=== PATIENT | male | born 1955 | race Caucasian/White ===

== ENCOUNTER 2025-03-08 08:24 | Observation (INO) ==
--- NOTE | 2024-12-02 10:50 | PAT Medication Instructions ---
Medication Instructions Date of Service December 02, 2024 Home Medications ascorbic acid (vitamin C) 500 mg capsule 500 mg PO DAILY baclofen 10 mg tablet 10 mg PO DAILY PRN cholecalciferol (vitamin D3) 125 mcg (5,000 unit) capsule 125 mcg PO DAILY ferrous gluconate 324 mg (37.5 mg iron) tablet 324 mg PO DAILY irbesartan 150 mg tablet 150 mg PO QAM metoprolol succinate 50 mg tablet,extended release 24 hr 50 mg PO BID yzxmcgikupil-yiltkvnn-zadgsn tablet 1 tab PO DAILY tramadol 50 mg tablet 50 mg PO Q8H PRN Cinnamon 1 tab PO QAM Vitamin B-12 1 tab PO QAM duloxetine 30 mg capsule,delayed release 60 mg PO HS fexofenadine 180 mg tablet 180 mg PO DAILY PRN folic acid 1 mg tablet 1 mg PO QAM hydrochlorothiazide 12.5 mg tablet 12.5 mg PO QAM magnesium 250 mg tablet 250 mg PO DAILY omeprazole 20 mg tablet,delayed release 20 mg PO QAM oxybutynin chloride 5 mg tablet 5 mg PO HS phentermine 37.5 mg tablet 37.5 mg PO DAILY potassium 99 mg tablet 99 mg PO QAM potassium chloride 10 mEq tablet,extended release 10 meq PO DAILY topiramate 50 mg tablet (Topamax) 50 mg PO HS valsartan 320 mg tablet 320 mg PO QAM vitamin A 1 tab PO QAM STOP 5 days before surgery phentermine 37.5 mg tablet 37.5 mg PO DAILY Continue as directed baclofen 10 mg tablet 10 mg PO DAILY PRN(if needed) STOP taking 2 weeks before surgery (or as soon as possible if surgery is within 2 weeks) Cinnamon 1 tab PO QAM vitamin A 1 tab PO QAM DO NOT take the morning of surgery ascorbic acid (vitamin C) 500 mg capsule 500 mg PO DAILY cholecalciferol (vitamin D3) 125 mcg (5,000 unit) capsule 125 mcg PO DAILY ferrous gluconate 324 mg (37.5 mg iron) tablet 324 mg PO DAILY irbesartan 150 mg tablet 150 mg PO QAM tbpwbbmhqpiw-dwawzxew-lzhwlt tablet 1 tab PO DAILY Vitamin B-12 1 tab PO QAM fexofenadine 180 mg tablet 180 mg PO DAILY PRN folic acid 1 mg tablet 1 mg PO QAM hydrochlorothiazide 12.5 mg tablet 12.5 mg PO QAM magnesium 250 mg tablet 250 mg PO DAILY potassium 99 mg tablet 99 mg PO QAM potassium chloride 10 mEq tablet,extended release 10 meq PO DAILY valsartan 320 mg tablet 320 mg PO QAM Take morning of surgery With a small sip of water, OTHERWISE NOTHING TO EAT OR DRINK AFTER MIDNIGHT: metoprolol succinate 50 mg tablet,extended release 24 hr 50 mg PO BID tramadol 50 mg tablet 50 mg PO Q8H PRN(if needed) omeprazole 20 mg tablet,delayed release 20 mg PO QAM Take evening before surgery metoprolol succinate 50 mg tablet,extended release 24 hr 50 mg PO BID tramadol 50 mg tablet 50 mg PO Q8H PRN(if needed) duloxetine 30 mg capsule,delayed release 60 mg PO HS oxybutynin chloride 5 mg tablet 5 mg PO HS topiramate 50 mg tablet (Topamax) 50 mg PO HS Other Notes If you have any questions please call us at [phone] or [phone] or [phone] or [phone]
--- NOTE | 2024-12-09 12:36 | Anesthesiology Consultation ---
Date of Service December 09, 2024 Assessment & Plan (1) Encounter for pre-operative examination: - I called PCP Dr. Cerrato [facility] office 12/09/24 regarding creatinine at 2.0 and it was confirmed that provider would be made aware JAMESON. Labs will also be faxed to PCP. Patient will need PCP clearance prior to surgery, optimization form to be faxed. Surgeon's office made aware. Chart Review Chart Review: Pending: Refer to Additional Notes / Consult section and Patient seen in Pre Admission Testing Teaching & Discussion Pre-Anesthesia Teaching/Discussion Notes: Instructed NPO after midnight before surgery, except medications with 15 cc of water. Medication instructions provided according to the PAT guidelines. History Surgery Operation Date: 08/21/24 12:50 Proposed Procedures p Right Total Knee Arthroplasty - Tamir Anguiano DO Operation Date: 01/01/25 08:00 Proposed Procedures p Right Total Knee Arthroplasty - Tamir Anguiano DO Height/Weight Height: 6 ft 2 in Weight: 108.6 kg Allergies Allergy/AdvReac Type Severity Reaction Status Date / Time No Known Allergies Allergy Verified 11/26/24 14:48 Medications Home Medications Medication Instructions Recorded Confirmed Last Taken ascorbic acid (vitamin C) 500 mg 500 mg PO DAILY 10/17/20 11/26/24 Unknown capsule baclofen 10 mg tablet 10 mg PO DAILY PRN Muscle Spasm 10/17/20 11/26/24 Unknown cholecalciferol (vitamin D3) 125 125 mcg PO DAILY 10/17/20 11/26/24 Unknown mcg (5,000 unit) capsule ferrous gluconate 324 mg (37.5 mg 324 mg PO DAILY 10/17/20 11/26/24 Unknown iron) tablet irbesartan 150 mg tablet 150 mg PO QAM 10/17/20 11/26/24 Unknown metoprolol succinate 50 mg 50 mg PO BID 10/17/20 11/26/24 Unknown tablet,extended release 24 hr jiyenbpjeoyx-mqiknpgh-afdnpp tablet 1 tab PO DAILY 10/17/20 11/26/24 Unknown tramadol 50 mg tablet 50 mg PO Q8H PRN Pain 11/13/24 11/26/24 Unknown Cinnamon 1 tab PO QAM 11/26/24 11/26/24 Unknown Vitamin B-12 1 tab PO QAM 11/26/24 11/26/24 Unknown duloxetine 30 mg capsule,delayed 60 mg PO HS 11/26/24 11/26/24 Unknown release fexofenadine 180 mg tablet 180 mg PO DAILY PRN Allergic 11/26/24 11/26/24 Unknown Symptoms folic acid 1 mg tablet 1 mg PO [facility] 11/26/24 11/26/24 Unknown hydrochlorothiazide 12.5 mg tablet 12.5 mg PO [facility] 11/26/24 11/26/24 Unknown magnesium 250 mg tablet 250 mg PO DAILY 11/26/24 11/26/24 Unknown omeprazole 20 mg tablet,delayed 20 mg PO [facility] 11/26/24 11/26/24 Unknown release oxybutynin chloride 5 mg tablet 5 mg PO HS 11/26/24 11/26/24 Unknown phentermine 37.5 mg tablet 37.5 mg PO DAILY for energy 11/26/24 11/26/24 Unknown potassium 99 mg tablet 99 mg PO [facility] 11/26/24 11/26/24 Unknown potassium chloride 10 mEq 10 meq PO DAILY 11/26/24 11/26/24 Unknown tablet,extended release topiramate 50 mg tablet (Topamax) 50 mg PO HS 11/26/24 11/26/24 Unknown valsartan 320 mg tablet 320 mg PO [facility] 11/26/24 11/26/24 Unknown vitamin A 1 tab PO [facility] 11/26/24 11/26/24 Unknown Past Medical History Medical History Acid reflux controlled, stable per pt Marino's cyst right Decreased energy states started on phentermine to help w/ this Diabetes hx- no longer on meds states controlled w/ cinnamon Excessive sweating reports on oxybutynin for this History of blood clots (~05/2024) 05/2024 >> "suspected" clot behind RIGHT knee was on blood thinner x 3 mos History of COVID-19 (05/2020) hospitalized x 1 month, on ventilator; denies long term care pharmacist issues HTN (hypertension) controlled, stable per pt Osteoarthritis Seasonal allergies Sleep apnea no device needed Patient denies h/o stroke, seizures, heart attack, heart failure, or blood transfusions. Exercise / Class Metabolic Activity II 4-5 Yardwork/Stairs/Walk up hill (ambulates with cane, denies chest discomfort or shortness of breath with one flight of stairs) Past Surgical History Surgical History Hx of colonoscopy Hx of fusion of cervical spine ~1999 unsure of level, full ROM Hx of prostatectomy "borderline cancer" Hx of removal of cyst left wrist Hx of shoulder surgery X3 LEFT X2 RIGHT Past Anesthesia History No Hx of Anesthesia Complications and Other (daughter post-op aggressiveness) History of PONV No Hx of PONV and No Hx of Motion Sickness Social History Smoking Status: Former smoker Do You Dip or Chew Tobacco: No Smoking End Date: quit ~5 yrs ago Hx Alcohol Use: No Hx Substance Use: No substance use type: does not use Review of Systems Patient denies chest pain, shortness of breath, dyspnea on exertion, fever, chills, cough, wheezing, or palpitations. Physical Exam Vital Signs Vitals BP 107/68 P 81 TEMP 37.0 SP02 96% on RA RESP 17 Physical Patient resting comfortably in chair in no acute distress, alert and oriented, responding appropriately throughout visit Full cervical extension range of motion without pain TMD 3.5 finger breadths Mallampati Score 2 Dentition: chipped right upper side tooth and cap/crowns; denies loose teeth, implants or bridges Lungs: normal respiratory effort. Good air movement, clear throughout to auscultation, no adventitious breath sounds Cardiac: regular rate and rhythm, no murmurs noted Carotid arteries: negative bruit bilat Lab Results Anesthesia Preop Results Results Anesthesia Widget: WBC 9.96 K/ul (4.8-10.8) 12/09/24 Hgb 13.0 g/dl (14.0-18.0) L 12/09/24 Hct 38.3 % (42.0-52.0) L 12/09/24 Plt 267 K/uL (130-400) 12/09/24 Na 140 mmol/L (136-145) 12/09/24 K 4.2 mmol/L (3.5-5.1) 12/09/24 Cl 108 mmol/L (98-107) H 12/09/24 CO2 26 mmol/L (21-32) 12/09/24 BUN 40 mg/dl (6-23) H 12/09/24 Creat 2.04 mg/dl (0.6-1.4) H 12/09/24 Glucose Level 89 mg/dl (70-99(Fasting)) 12/09/24 PT 10.5 Seconds (9.0-12.0) 12/09/24 PTT 27 Seconds (21-31) 12/09/24 INR 1.0 (0.9-1.1) 12/09/24 HA1c 5.7 % (4.5-5.6) H 12/09/24 Blood Type A Positive 12/09/24 Antibody Screen NEGATIVE 12/09/24 Testing Electrocardiogram Date: 12/09/24 NSR, rate 83 bpm RBBB Chest X-Ray Date: 12/09/24 No acute findings.
--- NOTE | 2025-03-03 12:55 | History & Physical Report ---
Date of Service March 03, 2025 Assessment & Plan (1) Osteoarthritis of right knee: We will proceed with a right total knee arthroplasty. Postoperatively, he will be started on aspirin for DVT prophylaxis and kept overnight in the hospital for postop medical management. He plans to have the hospital set up home health at discharge. History of Present Illness Chief Complaint: Osteoarthritis right knee. Primary Care Provider: Randolph Fuchs is a pleasant 69-year-old male who has been dealing with chronic increasing right knee pain. X-rays and clinical examination have been diagnostic for advanced arthritis of the right knee. After failing extensive conservative treatment, he has elected to proceed with a right total knee arthroplasty. Allergies Allergy/AdvReac Type Severity Reaction Status Date / Time No Known Allergies Allergy Verified 02/25/25 13:15 Home Medications Medication Instructions Recorded Confirmed Type baclofen 10 mg tablet 10 mg PO DAILY PRN Muscle Spasm 10/17/20 02/25/25 History cholecalciferol (vitamin D3) 125 125 mcg PO QAM 10/17/20 02/25/25 History mcg (5,000 unit) capsule ferrous gluconate 324 mg (37.5 mg 324 mg PO QAM 10/17/20 02/25/25 History iron) tablet fgjwmydczfin-eosklkhm-hsmpon tablet 1 tab PO DAILY 10/17/20 02/25/25 History Cinnamon 2 tab PO QAM 11/26/24 02/25/25 History duloxetine 30 mg capsule,delayed 60 mg PO HS 11/26/24 02/25/25 History release fexofenadine 180 mg tablet 180 mg PO DAILY PRN Allergic 11/26/24 02/25/25 History Symptoms folic acid 1 mg tablet 1 mg PO QAM 11/26/24 02/25/25 History hydrochlorothiazide 12.5 mg tablet 25 mg PO QAM 11/26/24 02/25/25 History magnesium 250 mg tablet 250 mg PO DAILY 11/26/24 02/25/25 History omeprazole 20 mg tablet,delayed 20 mg PO QAM 11/26/24 02/25/25 History release phentermine 37.5 mg tablet 37.5 mg PO DAILY for energy 11/26/24 02/25/25 History potassium 99 mg tablet 99 mg PO QAM 11/26/24 02/25/25 History potassium chloride 10 mEq 10 meq PO DAILY 11/26/24 02/25/25 History tablet,extended release topiramate 50 mg tablet (Topamax) 50 mg PO HS 11/26/24 02/25/25 History vitamin A 1 tab PO QAM 11/26/24 02/25/25 History acetaminophen 650 mg 1,300 mg PO DAILY PRN Pain 12/30/24 02/25/25 History tablet,extended release (Tylenol 8 Hour) ascorbate calcium (vitamin C) 500 500 mg PO BID 12/30/24 02/25/25 History mg tablet betamethasone, augmented 0.05 % 1 applic topical BID PRN Skin 12/30/24 02/25/25 History topical ointment (Diprolene Irritation (augmented)) clotrimazole-betamethasone 1 1 applic topical BID PRN Skin 12/30/24 02/25/25 History %-0.05 % topical cream Irritation metoprolol tartrate 50 mg tablet 50 mg PO HS 12/30/24 02/25/25 History mupirocin 2 % topical ointment 1 applic topical QPM PRN Skin 12/30/24 02/25/25 History Irritation nystatin 100,000 unit/gram topical 1 applic topical TID PRN Skin 12/30/24 02/25/25 History cream Irritation oxybutynin chloride 5 mg tablet 2.5 mg PO DAILY PRN bladder issues 12/30/24 02/25/25 History tizanidine 4 mg tablet 4 mg PO Q8H PRN muscle spasms 12/30/24 02/25/25 History tramadol 50 mg tablet 50 mg PO Q6H PRN Pain 12/30/24 02/25/25 History valsartan 320 mg tablet 320 mg PO QAM 12/30/24 02/25/25 History alprazolam 0.5 mg tablet (Xanax) 0.25 mg PO HS PRN Sleep 02/25/25 02/25/25 History Past Med/Surg History Problem List Acute kidney injury Myalgia Vitamin D deficiency Chronic low back pain Injury of right rotator cuff Left thyroid nodule Aphthous ulcer Multinodular goiter Euthyroid goiter Dysrhythmia, cardiac Congestive heart failure (CHF) Lumbar radiculopathy Myofascial pain syndrome of lumbar spine Sacroiliitis Piriformis syndrome Myositis Sciatica Cervicalgia Bilateral wrist pain Muscle spasm of back Obstructive sleep apnea Hypersomnia Spinal stenosis of lumbar region with neurogenic claudication Tinea unguium Toe pain, right Diabetes insipidus Other specified postprocedural states Spondylolisthesis, lumbar region Insomnia Anemia Atypical angina Blood in stool Family history of colon cancer in mother ED (erectile dysfunction) Prostatitis, chronic Lumbar facet joint pain Allergic rhinitis Peripheral neuropathy Shoulder pain, left Other sprain of left shoulder joint, initial encounter Rotator cuff syndrome Transition of care Coronavirus infection Viral illness Neuropathic pain BPH without urinary obstruction or lower urinary tract symptoms Prostate cancer Transitional lumbosacral vertebra Right leg weakness Obesity Spondylosis Arthropathy of lumbar facet joint Knee joint pain Hyperhidrosis Diastasis recti Prediabetes Dry mouth Chest pain Thyromegaly Chronic cough [id number] condition Tinea versicolor Skin lesions Easy bruisability Renal insufficiency Chronic diastolic (congestive) heart failure Nontoxic multinodular goiter Generalized anxiety disorder Unspecified asthma Petechiae Nonspecific syndrome suggestive of viral illness Dermatitis Cellulitis BMI 35.0-35.9,adult Daytime somnolence Kyphosis Acute deep vein thrombosis (DVT) Right calf pain Localized swelling, mass and lump, right lower limb Muscle weakness (generalized) Dystrophia unguium Cold feet Chronic kidney disease, stage 4 (severe) HTN (hypertension) controlled, stable per pt Medial meniscus tear Osteoarthritis of right knee Tendinitis of right rotator cuff Rotator cuff tear, left Medical History History of asthma pt denies Sacroiliitis hx History of renal insufficiency Left thyroid nodule hx, monitoring Generalized anxiety disorder pt denies, "takes medication for pain not anxiety" Hx of goiter pt denies, "diagnosed with a nodule only" Dysrhythmia, cardiac pt denies "had high blood pressure, but it's currently stable" Hx of congestive heart failure pt denies. History of chronic cough History of cellulitis none recently, resolved Blood in stool hx, "years ago due to a hemorrhoid, no recent issues" Hx of chronic kidney disease f/u [facility] (last saw 01/26/25) Nausea and vomiting after administration of anesthetic agent only once in 1968 Hx of peripheral neuropathy Hx of insomnia History of hypertension Atypical angina hx, "from a cough, nothing heart related" History of anemia Degenerative joint disease of cervical spine Impaired fasting glucose hx, "no issues recently per pt" Lower back pain Acid reflux controlled, stable per pt Osteoarthritis Decreased energy states started on phentermine to help w/ this Excessive sweating reports on oxybutynin for this History of COVID-19 (05/2020) hospitalized x 1 month, on ventilator; denies halfway issues Seasonal allergies Diabetes hx- no longer on meds states controlled w/ cinnamon Marino's cyst right History of blood clots (~05/2024) 05/2024 >> "suspected" clot behind RIGHT knee was on blood thinner x 3 mos>ended up being a Marino's cyst determined by second US Sleep apnea no device needed, also lost 60lb which "helped" Surgical History History of esophagogastroduodenoscopy (EGD) Hx of nasal polypectomy H/O prostate biopsy Hx of colonoscopy Hx of removal of cyst left wrist Hx of prostatectomy "borderline cancer" Hx of shoulder surgery X3 LEFT X2 RIGHT Hx of fusion of cervical spine ~1999 unsure of level, full ROM Family History Mother Colon cancer Father Breast cancer Unknown Heart disease Social History Smoking Status: Former smoker Tobacco Type: Cigarettes Second Hand Exposure: No; Do You Dip or Chew Tobacco: No; Hx Alcohol Use: Yes Hx Substance Use: No Preferred Language: Congolese Communication Ability: Effective Visual Impairment: No Limitations Hearing Ability: Normal Batch Roller Operator Required: No Beliefs That Will Affect Care: None marital status: Current Living Situation: Alone current occupational status: employed and retired 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 Physical Exam On physical exam of the right knee, he has a slight valgus deformity. Tenderness to palpation of the distal lateral femoral condyle and over the lateral joint line.. Constitutional WD/WN, vitals as above Eyes PERRL, conjunctivae normal, anicteric sclerae ENMT external ear and nose normal, oropharynx normal Neck trachea midline, no thyromegaly Respiratory normal respiratory effort Cardiovascular RRR, no murmur, no edema Gastrointestinal (Abdomen) normal bowel sounds, soft, nontender, no hepatosplenomegaly Psychiatric A+Ox3, euthymic affect Results & Data Results & Data Laboratory Results . Diagnostic Findings X-rays of the right knee show advanced osteoarthritis with joint space narrowing, osteophyte formation, and [id number] articulation PG Care Time/CCT Total # of Minutes Spent Total Time Spent with Patient: Total time spent is greater than 50% in coordination of care (as documented) at patient's floor/unit and/or counseling patient: Coding Level of Care Code None Diagnoses Osteoarthritis of right knee M17.11
[~2025-03-08 08:24] MED LIST: BUPIVACAINE 0.5 % 5 MG/1 ML PF 10ML VIAL ONE; LIDOCAINE 2% 2 ML VIAL/AMP(20MG/ML) INFIL ONE; MIDAZOLAM HCL 1 MG/ML 2ML VIAL ONE; ROPIVACAINE 0.5% 5 MG/ML 30 ML VIAL ONE
[2025-03-08] MEDS ORDERED: PROPOFOL IV EMULSION 10 MG/ML 20 ML VIAL IV ONE (08:25)
[2025-03-08] MEDS ORDERED: ONDANSETRON INJ 2 MG/ML 2 ML VIAL ONE (08:25)
[2025-03-08] MEDS: LR 500ML BOLUS, THEN 15ML/HR IV SCH (09:05)
[2025-03-08 09:07] LABS: INR 0.9 (0.9-1.1); Partial Thromboplastin Time 28 Seconds (21-31); Prothrombin Time 10.2 Seconds (9.0-12.0)
[2025-03-08] MEDS: ACETAMINOPHEN 500 MG TAB PO SCH ×2 (09:11→16:39)
[2025-03-08] MEDS: FAMOTIDINE 20 MG TAB PO SCH (09:12)
[2025-03-08] MEDS: GABAPENTIN 300 MG CAP PO SCH (09:12)
[2025-03-08] MEDS: dexAMETHasone**PF** 10 MG/ML VIAL IV SCH (09:13)
[2025-03-08] MEDS ORDERED: LIDOCAINE 2% 2 ML VIAL/AMP(20MG/ML) INFIL ONE (09:15)
[2025-03-08] MEDS: LR 60ML/HR IV SCH (09:41)
[2025-03-08] MEDS: TRANEXAMIC ACID 1,000 MG **IV Pre-op IV SCH (09:42)
--- NOTE | 2025-03-08 09:45 | History & Physical Bridge Note ---
Date of Service March 08, 2025 History & Physical Bridge Note I have examined the patient, reviewed the History & Physical and in the interval since the performance of the History & Physical I have noted the following changes of clinical significance: no changes noted
[2025-03-08] MEDS ORDERED: ATROPINE SULFATE 0.1 MG/ML 10ML SYR IV PRN (10:11)
[2025-03-08] MEDS ORDERED: ONDANSETRON INJ 2 MG/ML 2 ML VIAL IV PRN ×2 (10:11→13:18)
[2025-03-08] MEDS ORDERED: PHENYLEPHRINE HCL 10 MG/ML VIAL ONE (10:36)
[2025-03-08] MEDS: ORTHO JOINT ANESTHETIC ONE (10:47)
[2025-03-08] MEDS: ROPIV 0.5% 246mg, Ketorolac 30mg, EPINEPHrine 0.5mg in NSS INFIL SCH (10:47)
--- NOTE | 2025-03-08 12:47 | XRay Report ---
XR knee RT 1 or 2V routine CLINICAL HISTORY: Surgical Post Op COMPARISON: None FINDINGS: Right knee prosthesis shows no hardware complication. There is expected soft tissue gas. IMPRESSION: Unremarkable postoperative exam. ACT 112: Negative or not required by law. Electronically signed by: iMchi Campuzano M.D. 03/08/2025 12:46 PM
[2025-03-08] MEDS ORDERED: BACLOFEN 10 MG TAB PO PRN (13:18)
[2025-03-08] MEDS ORDERED: MAGNESIUM HYDROXIDE SUSP 30 ML UDC PO PRN (13:18)
[2025-03-08] MEDS ORDERED: METOCLOPRAMIDE HCL INJ 5 MG/ML 2 ML VIAL IV PRN (13:18)
[2025-03-08] MEDS ORDERED: HYDROmorphone INJ 0.5 MG/0.5 ML SYR IV PRN (13:18)
[2025-03-08] MEDS ORDERED: diphenhydrAMINE Capsule 25 MG CAP PO PRN (13:18)
[2025-03-08] MEDS ORDERED: FEXOFENADINE HCL 180 MG TAB PO PRN (13:18)
[2025-03-08] MEDS ORDERED: NALOXONE HCL 0.4 MG/1 ML VIAL/CARP IV PRN (13:18)
--- NOTE | 2025-03-08 13:25 | Anesthesiology Progress Note ---
Date of Service March 08, 2025 Anesthesia Post Procedure Vital Signs Vital Signs: Temp Pulse Pulse Resp BP Pulse Ox O2 Del Method 03/08/25 13:15 77 15 125/69 96 Room Air 03/08/25 13:00 78 16 128/78 95 Room Air 03/08/25 12:50 70 15 122/69 92 Room Air 03/08/25 12:40 98.1 F 73 17 112/69 96 Room Air 03/08/25 12:30 77 22 125/68 95 Room Air 03/08/25 12:20 80 19 117/69 95 Room Air 03/08/25 12:10 83 26 H 104/86 92 Room Air 03/08/25 12:01 98.1 F 81 19 122/75 95 Room Air 03/08/25 08:56 97.9 F 71 18 153/89 H 97 Room Air Pain Intensity Right Knee: Pain Intensity: 5 Transfer of Care Handoff Completed per policy Notes Mental Status: alert / awake / arousable and participated in evaluation Patient Amnestic to Procedure: Yes Nausea / Vomiting: adequately controlled Pain: adequately controlled Airway Patency, RR, SpO2: stable & adequate BP & HR: stable & adequate Hydration State: stable & adequate Neuraxial Anesthesia: was administered and sensory block is resolving Anesthetic Complications: no major complications apparent and Pt Satisfied with anesthetic care
--- NOTE | 2025-03-08 14:23 | Operative Report ---
PG Post Operative Report Pre & Post Diagnosis Operation Date: 03/08/25 10:00 Pre-Op Diagnosis: Right Knee Osteoarthritis Post-Op Diagnosis: Right Knee Osteoarthritis I identified the patient and participated in the time-out.: Yes Procedure Operation Date: 03/08/25 10:00 Actual Procedures p Robotic Assisted Right Total Knee Arthroplasty(Right) - Tamir Anguiano DO Surgeon Tamir Anguiano DO Early Childhood Services Coordinator John Wynne PA-C Estimated Blood Loss 30 Findings Consistent with Post-Op Diagnosis Specimens Right femoral and tibial bone Description of Procedure Implants used: I used a Jocelyn Persona total knee arthroplasty system with a size 11 standard PS femur, G tibia, 34 oval patella, and a size 10 CPS polyethylene bearing. All components were cemented in place with Biomet cement. Jef arrived [facility] for the above procedure. He was seen in the preoperative holding area and the operative extremity was identified and signed. he was given a preoperative antibiotic, TXA, a spinal anesthetic and an adductor nerve block. He was taken back to the operating room and laid on the table in supine position. He was given basic sedation. The operative knee was then prepped and draped in sterile fashion. A timeout was done, and the patient and the operative extremity was properly identified. A midline incision was made directly over the patella. Dissection was taken down to the extensor mechanism. A medial parapatellar arthrotomy was used. The medial retinaculum was released and the fat pad was mostly excised. The knee was flexed and the ACL, PCL, and meniscus were removed. The alignment of the knee replacement was assisted with a [employer] robotic knee. The femoral array was pinned in the distal femur and the tibial array was pinned using a percutaneous technique in the upper shaft of the tibia. The robot was appropriately calibrated and the structure of the knee was mapped out. The components were then manipulated on the screen to account for any malalignment and to assist in gap balancing. Once I was happy with the placement of the components on the screen, a distal femoral cutting guide was brought in place. The distal femur was then resected. The femur measured to be a size 11. A 4-in-1 cutting block was then put into place by the robot and 2 peg holes were drilled. The 4-in-1 cutting block was then impacted into place and anterior, posterior, and chamfer cuts were made. The cutting block was then brought down to the tibia and pinned into place. The proximal tibia was then resected. The posterior aspect of the knee was then opened up and any additional meniscus fragments and osteophytes were removed. The tibia measured to be a size G. The tibial plate was then placed in the appropriate rotation and the tibia was drilled and punched. Trial components were then placed. The patella was then everted and 9 mm was resected off the posterior aspect of the patella. The patella measured to be a size 34 oval. 3 peg holes were then drilled. A trial patella was placed. A size 12 CPS polyethylene insert was then trialed. The knee was brought through a full range of motion and felt to be stable. Trial components were then removed. The surrounding soft tissues were injected with 100 cc of an orthopedic pain control cocktail. All components were then cemented into place with Biomet cement. The final polyethylene insert was then snapped into place. Once cement was dry the tourniquet was deflated. Hemostasis was obtained. A dilute betadyne lavage was then done for 3 minutes. The joint was then irrigated with normal saline solution. The medial parapatellar arthrotomy was then closed with #1 Vicryl suture. The skin was closed with 2-0 Vicryl, 3-0V lock suture, and Marcin zip line. A soft compressive dressing was placed. He was then transferred to a hospital bed and taken to the postanesthesia care unit in stable condition. He tolerated the procedure well. John Wynne PA-C, was present for the entire procedure. He was critical for patient positioning, prepping, draping, retraction exposure, wound closure and application of sterile dressing. I attest to the content of the Intraoperative Record and any orders documented therein. Any exceptions are noted below.
[2025-03-08] MEDS: KETOROLAC TROMETHAMINE 15 MG/ML VIAL IV SCH (16:38)
[2025-03-08] MEDS: SODIUM CHLORIDE 0.9% 1,000 ML IV SCH (17:09)
[2025-03-08] MEDS: METOPROLOL TARTRATE 50 MG TAB PO SCH (21:06)
[2025-03-08] MEDS: SENNA 8.6 MG TAB PO SCH (21:07)
[2025-03-08] MEDS: DOCUSATE SODIUM 100 MG CAP PO SCH (21:07)
[2025-03-08] MEDS: ASPIRIN 81 MG ECTAB PO SCH (21:07)
[2025-03-08] MEDS: TOPIRAMATE 50 MG TAB PO SCH (21:07)
[2025-03-09] MEDS: MULTIVITAMIN TAB PO SCH (08:01)
[2025-03-09] MEDS: FERROUS GLUCONATE 324 MG TAB PO SCH (08:01)
[2025-03-09] MEDS: hydroCHLOROthiazide 25 MG TAB PO SCH (08:01)
[2025-03-09] MEDS: VALSARTAN 80 MG TAB PO SCH (08:01)
--- NOTE | 2025-03-09 08:22 | Orthopedic Progress Note ---
Date of Service March 09, 2025 Assessment & Plan (1) Status post total right knee replacement: * Continue Current Treatment * Disposition: home * Daily treatment: Physical Therapy/ Occupational Therapy per protocol * Weight bearing status: WBAT * Continue to monitor for ABLA * Pain control * DVT prophylaxis, ASA * Office/hospital f/u 2 weeks for progress check and staple/suture removal * Plan for discharge today pending PT/OT clearance Subjective . Active Problems: S/p right TKA POD 1 69 y/o male s/p right TKA. Doing well overall, pain managed and improved function. Denies fever/chills, chest pain/SOB, nausea/vomiting. Otherwise no complaints. Review of Systems All systems reviewed & are unremarkable except as noted in HPI & below. Physical Exam . * General: Alert and oriented, no acute distress * Constitutional: well-developed, well-nourished. * Respiratory: Normal respiratory effort, no distress * Gastrointestinal: No tenderness to palpation, no rigidity or guarding. * Skin: No rash or lesion. * Neurologic: Grossly normal * Musculoskeletal: Right knee surgical dressing CDI, not removed for exam. Otherwise no obvious deformity or overlying skin changes RLE. Diffuse TTP distal thigh and knee region. Otherwise no specific tenderness of proximal thigh, lower leg, foot/ankle. AROM knee flexion 100 degrees. AROM foot/ankle intact. Sensation intact plantar/dorsal foot. Brisk capillary refill. Results & Data Results & Data Laboratory Results . Diagnostic Findings . PG Care Time/CCT Total # of Minutes Spent Total Time Spent with Patient: Total time spent is greater than 50% in coordination of care (as documented) at patient's floor/unit and/or counseling patient: Coding Level of Care Code 52510 Post Operative Follow-Up Diagnoses Status post total right knee replacement Z96.651
== END 2025-03-09 11:42 | disposition home health service (06) ==
LOC: ASU 08:24 → 3N 08:24